=== PATIENT | female | born 1960 | race Caucasian/White ===

== ENCOUNTER 2017-12-03 12:04 | Emergency (ER) | payer OTHER ==
[2017-12-03] MEDS ORDERED: ADENOSINE 6 MG/2 ML VIAL IVP STA ×3 (12:20→12:45)
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
[2017-12-03] MEDS ORDERED: DILTIAZEM 50 MG/10 ML VIAL IV ONE ×3 (12:30→13:00)
[2017-12-03] MEDS ORDERED: DILTIAZEM 50 MG/10 ML VIAL IVP ONE ×3 (12:37→13:09)
[2017-12-03] MEDS ORDERED: SODIUM CHLORIDE 0.9% 1,000 ML IV ONE (12:37)
[2017-12-03 12:39] LABS: BASOPHILS # (AUTO) 0.1 10^3/uL (0.0-0.1); BASOPHILS % (AUTO) 0.7 %; EOSINOPHILS % (AUTO) 0.4 %; HGB - HEMOGLOBIN 17.2 g/dL (12.0-16.0); LYMPHOCYTES # (AUTO) 1.8 10^3/uL (1.5-3.5); LYMPHOCYTES % (AUTO) 16.6 %; MEAN CORPUSCULAR HEMOGLOBIN 35.2 pg (27.0-31.0); MEAN CORPUSCULAR HGB CONC 34.7 g/dL (32.0-36.0); MEAN CORPUSCULAR VOLUME 101.4 fL (81.0-99.0); MEAN PLATELET VOLUME 8.8 fL (7.9-10.8); MONOCYTES # (AUTO) 0.8 10^3/uL (0.0-1.0); MONOCYTES % (AUTO) 7.8 %; NEUTROPHILS % (AUTO) 74.5 %; PLT - PLATELET COUNT 231 10^3/uL (130-450); RED BLOOD COUNT 4.88 10^6/uL (4.20-5.40); RED CELL DISTRIBUTION WIDTH 15.2 % (12.0-15.0); WHITE BLOOD COUNT 10.8 x10^3/uL (4.8-10.8)
[2017-12-03] MEDS ORDERED: ADENOSINE 6 MG/2 ML VIAL IVP ONE (12:44)
[2017-12-03] MEDS ORDERED: DILTIAZEM 50 MG/10 ML VIAL ONE (12:48)
[2017-12-03 12:51] LABS: ALBUMIN 4.8 g/dL (3.2-5.5); ALBUMIN/GLOBULIN RATIO 1.4 (1.0-2.2); BILIRUBIN,TOTAL 1.2 mg/dL (0.2-1.0); CALCIUM 9.2 mg/dL (8.5-10.3); CREATININE 0.7 mg/dL (0.4-1.0); MAGNESIUM 1.7 mg/dL (1.7-2.8); TOTAL PROTEIN 8.3 g/dL (6.7-8.2)
[2017-12-03] MEDS ORDERED: POTASSIUM CHLOR 10 MEQ/100 ML 10 MEQ/100 ML BAG IV ONE (13:20)
[2017-12-03] MEDS ORDERED: POTASSIUM BICARB 25 MEQ TABLET PO STA (13:20)
[2017-12-03] MEDS ORDERED: THIAMINE 100 MG TABLET PO STA (13:21)
[2017-12-03] MEDS ORDERED: LORazepam 2 MG/ML VIAL IVP STA (14:06)
--- NOTE | 2017-12-03 14:21 | XRAY Preliminary Report ---
Exam: XR RIBS W/PA CHEST LT IMPRESSION: 1. No acute pulmonary process. 2. No displaced rib fracture. [facility] SITE ID: [id number]
[2017-12-03] MEDS ORDERED: MORPHINE 10 MG/ML VIAL IVP STA (14:52)
--- NOTE | 2017-12-03 15:12 | XRAY Report ---
EXAM: LEFT RIB RADIOGRAPHY EXAM DATE: 12/03/2017 01:46 PM. CLINICAL HISTORY: Left rib injury.. COMPARISON: None. TECHNIQUE: 1 view of the chest and 2 views of the ribs. FINDINGS: Bones: Normal. No fracture or bone lesion. Prominent nipple silhouette at the lateral right lung base . EKG leads overlie the chest. Lungs: No focal opacities. No pneumothorax. No pleural effusions. Mediastinum: Heart and mediastinal contours are unremarkable. Other: None. IMPRESSION: 1. No acute pulmonary process. 2. No displaced rib fracture. [facility] Referring Provider Line: [phone] SITE ID: [id number]
[2017-12-03] MEDS ORDERED: IOPAMIDOL-300 100 ML VIAL ONE (15:47)
[2017-12-03] MEDS ORDERED: IOPAMIDOL-300 100 ML VIAL IVP ONE ×2 (16:01)
[2017-12-03 16:35] LABS: BILIRUBIN,URINE NEGATIVE (NEGATIVE); GLUCOSE, URINE (UA) NEGATIVE (NEGATIVE); KETONES,URINE (UA) TRACE mg/dL (NEGATIVE); LEUKOCYTE ESTERASE, URINE NEGATIVE (NEGATIVE); NITRITE,URINE NEGATIVE (NEGATIVE); OCCULT BLOOD,URINE NEGATIVE (NEGATIVE); PH,URINE 7.5 PH (5.0-7.5); PROTEIN,URINE NEGATIVE (NEGATIVE); UROBILINOGEN,URINE 0.2 (NORMAL) E.U./dL (NORMAL)
[2017-12-03 16:36] LABS: CLARITY,URINE CLEAR (CLEAR)
[2017-12-03 16:51] LABS: MUDS CUTOFF CONCENTRATIONS CUTOFF CONC BELOW:
[2017-12-03 16:54] LABS: AMPHETAMINE SCREEN,URINE NEGATIVE (NEGATIVE); BENZODIAZEPINES SCREEN, URINE NEGATIVE (NEGATIVE); COCAINE SCREEN URINE NEGATIVE (NEGATIVE); METHADONE SCREEN, URINE NEGATIVE (NEGATIVE); METHAMPHETAMINES SCREEN, URINE NEGATIVE (NEGATIVE); OPIATE SCREEN, URINE POSITIVE (NEGATIVE); OXYCODONE SCREEN, URINE NEGATIVE (NEGATIVE); PROPOXYPHENE SCREEN, URINE NEGATIVE (NEGATIVE); TRICYCLIC ANTIDEPRESSANT,URINE NEGATIVE (NEGATIVE)
--- NOTE | 2017-12-03 16:55 | CT Report ---
EXAM: CT ANGIOGRAM CHEST EXAM DATE: 12/03/2017 04:01 PM. CLINICAL HISTORY: Chest pain COMPARISON: None. TECHNIQUE: Routine helical imaging was performed through the chest in the pulmonary arterial phase. I V Contrast: 80 cc Isovue 300. Reconstructions: Coronal 3-D MIP reconstructions.Sagittal and coronal. In accordance with CT protocol optimization, one or more of the following dose reduction techniques w ere utilized for this exam: automated exposure control, adjustment of mA and/or KV based on patient s ize, or use of iterative reconstructive technique. FINDINGS: Pulmonary Arteries: Diagnostic quality: Adequate through the segmental arteries. No evidence for acute or chronic pulmona ry emboli. RV/LV is within normal limits. There is no interventricular septal bowing. There is no reflux of cont rast material in the IVC. Lungs/Pleura: No consolidation, nodules, or edema. No effusions or pneumothorax. Mediastinum: Normal. No cardiac enlargement or adenopathy. Thoracic Aorta: Unremarkable. Upper Abdomen: Unremarkable. Other: There is minimally displaced fracture through the left lateral ninth rib. No other fractures a re seen. IMPRESSION: 1. No evidence of acute pulmonary embolism. 2. No thoracic aortic dissection. 3. No consolidation or pneumothorax. 4. There is minimal displaced fracture through the lateral left ninth rib. [facility] Referring Provider Line: [phone] SITE ID: [id number]
[2017-12-03 17:18] VITALS: BP 197/121
== END 2017-12-03 17:18 | disposition home or self-care (01) ==
LOC: ED 12:04
DX: R00.0 Tachycardia, unspecified (principal); S22.32XA Fracture of one rib, left side, initial encounter for closed fracture; F17.200 Nicotine dependence, unspecified, uncomplicated; X58.XXXA Exposure to other specified factors, initial encounter; Y93.89 Activity, other specified; I48.91 Unspecified atrial fibrillation; I10 Essential (primary) hypertension
CPT/HCPCS: 36415; 71101; 71275; 80053; 80306; 80320; 81003; 83690; 83735; 84484; 85025; 85379; 93005; 96361; 96365; 96375; 96376; 99284; A9270; J0153; J2060; Q9967; 81001; 87086